=== PATIENT | male | born 1970 | race Two or more races ===

== ENCOUNTER 2017-10-28 10:55 | Emergency (ER) | payer BC ==
[2017-10-28 11:07] VITALS: BP 132/91; PULSE 76; TEMP 98.6; BMI 33.2
[2017-10-28] MEDS ORDERED: ALBUTEROL SO4 2.5/IPRATROPIUM 0.5 INH SOL 3 ML VIAL.NEB. NEB ONE ×2 (11:19→11:34)
[2017-10-28] MEDS ORDERED: predniSONE 20 MG TABLET (UD) PO ONE (11:20)
[2017-10-28] MEDS ORDERED: MONTELUKAST NA 10 MG TABLET PO ONE (11:20)
--- NOTE | 2017-10-28 11:26 | PDOC ---
History of Present Illness - General Chief Complaint: Asthma Stated Complaint: ASTHMA, COUGH, SOB Time Seen by Provider: 10/28/17 10:59 History Source: Patient, Family Exam Limitations: No Limitations - History of Present Illness Initial Comments: 10/28/17 11:23 CHIEF COMPLAINT: "My asthma is acting up." HISTORY OF PRESENT ILLNESS: This is a 47-year-old man with a history of asthma for 3 years, never hospitalized, never intubated. Patient usually gets worse in the spring with the heavy pollen exposure. Currently he has been having increased wheezing for the last 2 weeks, worse when he goes outside with exposure to the pollen. He had been taking albuterol with some relief, but since yesterday his asthma has been getting worse. He started on Symbicort yesterday but continues to have significant wheezing today. He feels he needs some prednisone. He denies any symptoms of infection. There is no sore throat or fever. His chest feels tight with increased wheezing. He took his Symbicort and his albuterol this morning before coming to the hospital. REVIEW OF SYSTEMS: GENERAL/CONSTITUTIONAL: No fever or chills. No weakness. No weight change. HEAD, EYES, EARS, NOSE AND THROAT: No change in vision. No ear pain or discharge. No sore throat. CARDIOVASCULAR: No chest pain. Positive shortness of breath with wheezing. RESPIRATORY: Positive cough on deep breath, no sputum production. Positive wheezing. No hemoptysis. GASTROINTESTINAL: No nausea, vomiting, diarrhea or constipation. No rectal bleeding. GENITOURINARY: No dysuria, frequency, or change in urination. MUSCULOSKELETAL: No joint or muscle swelling or pain. No neck or back pain. SKIN AND BREASTS: No rash or easy bruising. NEUROLOGIC: No headache, vertigo, loss of consciousness, or loss of sensation. PSYCHIATRIC: No depression or anxiety. ENDOCRINE: No increased thirst. No abnormal weight change. HEMATOLOGIC/LYMPHATIC: No anemia, easy bleeding, or history of blood clots. ALLERGIC/IMMUNOLOGIC: No hives or skin allergy. No latex allergy. 10/28/17 11:25 Patient states he quit smoking 15 years ago. Past History - Past Medical History Allergies/Adverse Reactions: Allergies Allergy/AdvReac Type Severity Reaction Status Date / Time No Known Allergies Allergy Verified 10/28/17 10:57 Home Medications: Ambulatory Orders Fluticasone/Vilanterol [Breo Ellipta 100-25 Mcg INH] 1 each IH DAILY #1 aer.pow.ba 04/18/16 Albuterol Sulfate [Proair Respiclick] 90 mcg IH ASDIR PRN #1 aer.pow.ba Montelukast Na [Singulair -] 10 mg PO HS #30 tablet 10/28/17 Prednisone [Prednisone 50 MG TABLETS] 50 mg PO DAILY #5 tablet 10/28/17 Anemia: No Asthma: Yes Cancer: No Cardiac Disorders: No CVA: No COPD: No CHF: No Dementia: No Diabetes: No GI Disorders: No Disorders: No HTN: No Hypercholesterolemia: No Kidney Stones: Yes Liver Disease: No Seizures: No Thyroid Disease: No - Surgical History Abdominal Surgery: Yes (HERNIA SX) - Immunization History Td Vaccination: No Immunization Up to Date: No - Suicide/Smoking/Psychosocial Hx Smoking Status: No Smoking History: Former smoker Have you smoked in the past 12 months: No Number of Cigarettes Smoked Daily: 0 If you are a former smoker, when did you quit?: 2001 Information on smoking cessation initiated: No 'Breaking Loose' booklet given: 04/18/16 Hx Alcohol Use: No Drug/Substance Use Hx: No Substance Use Type: Alcohol Hx Substance Use Treatment: No *Physical Exam - Vital Signs Last Vital Signs Temp Pulse Resp BP Pulse Ox 98.6 F 76 18 132/91 96 10/28/17 10:55 10/28/17 10:55 10/28/17 10:55 10/28/17 10:55 10/28/17 10:55 - Physical Exam Comments: 10/28/17 11:25 GENERAL: The patient is awake, alert, and fully oriented, in no acute distress. Patient is breathing easily and speaking in full sentences. Peak flow is 550 prior to treatment. HEAD: Normal with no signs of trauma. EYES: Pupils equal, round and reactive to light, extraocular movements intact, sclera anicteric, conjunctiva clear. ENT: Ears normal, nares patent, oropharynx clear without exudates. Moist mucous membranes. NECK: Normal range of motion, supple without lymphadenopathy, JVD, or masses. LUNGS: There is mild end expiratory wheezing. There is good air entry. HEART: Regular rate and rhythm, normal S1 and S2 without murmur, rub or gallop. ABDOMEN: Soft, nontender, normoactive bowel sounds. No guarding, no rebound. No masses. EXTREMITIES: Normal range of motion, no edema. No clubbing or cyanosis. No cords, erythema, or tenderness. NEUROLOGICAL: Cranial nerves II through XII grossly intact. Normal speech, normal gait. PSYCH: Normal mood, normal affect. SKIN: Warm, Dry, normal turgor, no rashes or lesions noted. Medical Decision Making - Medical Decision Making 10/28/17 12:13 Patient is a 47-year-old man with 3 year history of asthma, never hospitalized and never intubated. He comes in now with his usual springtime pollen exacerbation of his asthma. Albuterol and Symbicort has not been controlling the symptoms, although he just started taking Symbicort yesterday. He comes in now with wheezing and discomfort on breathing, increased coughing when taking a deep breath. No symptoms of infection. Initial peak flow was over 500, and now after receiving a DuoNeb, his peak flow is 720. He has also been started on prednisone in the ED. Repeat lung examination is clear. Impression: Asthma exacerbation secondary to pollen exposure Plan: Discharge on 5 days of prednisone, with Singulair at bedtime, and albuterol as needed. 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 *DC/Admit/Observation/Transfer Diagnosis at time of Disposition: Acute asthma exacerbation Qualifiers: Asthma severity: mild Asthma persistence: intermittent Qualified Code(s): J45.21 - Mild intermittent asthma with (acute) exacerbation - Discharge Dispostion Disposition: HOME Condition at time of disposition: Stable Decision to Admit order: No - Prescriptions Prescriptions: Albuterol Sulfate [Proair Respiclick] 90 mcg IH ASDIR PRN #1 aer.pow.ba PRN Reason: Wheezing Montelukast Na [Singulair -] 10 mg PO HS #30 tablet Prednisone [Prednisone 50 MG TABLETS] 50 mg PO DAILY #5 tablet - Referrals Referrals: Katey Webster MD [Primary Care Provider] - - Patient Instructions Printed Discharge Instructions: Asthma -- Adult Additional Instructions: Today you were evaluated for wheezing, coming from an asthma flareup related to pollen exposure. Your symptoms improved in the emergency department after starting prednisone and giving albuterol and ipratropium nebulizer treatment. Your peak flow on discharge was 720. You're recommended to take prednisone one tablet of 50 mg every morning for the next 5 mornings. He should also take Singulair 10 mg in the evening once a day to help prevent pollen ALLERGY. You may use the albuterol inhaler 2 puffs every 4 hours as needed for asthma symptoms when you have wheezing. 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 Return to the emergency department for any severe or progressive symptoms, in particular if your peak flow is less than 200. - Post Discharge Activity
[2017-10-28] MEDS ORDERED: predniSONE 20 MG TABLET (UD) ONE (11:34)
== END 2017-10-28 12:27 | disposition home or self-care (01) ==
LOC: FER 10:55
PROC: 3E0F7GC Introduction of Other Therapeutic Substance into Respiratory Tract, Via Natural or Artificial Opening (ICD-10-PCS; principal; 2017-10-28)
DX: J45.21 Mild intermittent asthma with (acute) exacerbation (principal); Z87.891 Personal history of nicotine dependence
CPT/HCPCS: 99282-25; J7620